=== PATIENT | female | born 2000 | race Asian ===

== ENCOUNTER 2021-10-27 10:20 | Emergency (ER) | payer OTHER, SELFPAY ==
[2021-10-27] MEDS ORDERED: Acetaminophen 500 MG TAB ONE (12:06)
[2021-10-27] MEDS ORDERED: Ibuprofen 200 MG TAB ONE (12:06)
== END 2021-10-27 13:11 | disposition home or self-care (01) ==
LOC: ERS 10:20
DX: U07.1 COVID-19 (principal)
CPT/HCPCS: 71045; 93005